=== PATIENT | male | born 1970 | race Caucasian/White ===

== ENCOUNTER 2022-03-02 11:21 | Outpatient (CLI) | payer OTHER, SELFPAY ==
--- NOTE | 2022-03-02 11:30 | MR_ITS ---
WS: [id number] MRI LUMBAR SPINE NONCONTRAST HISTORY: SPINAL STENOSIS OF LUMBAR REGION W/O NEUROGENIC CLAUDICATION COMPARISON: None available. TECHNIQUE: Sagittal and axial multisequence imaging is submitted. L4 retrolisthesis by 2 mm. The remaining vertebral bodies are normally aligned. Mild narrowing and desiccation of the disc spaces. Most significant L4-5 and L5-S1. No fracture or ma rrow edema. Conus terminates normally at L1-2 disc level. L1-L2: Normal. L2-L3: Normal. L3-L4: Mild annular disc bulging and very mild osteophytic ridging. Small central disc protrusion. Ad ditional LEFT foraminal disc protrusion which does contact but not displace the exiting LEFT L3 nerve root. Mild bilateral facet joint arthritis. Very mild central and subarticular recess narrowing. L4-L5: Diffuse annular disc bulging and osteophytic ridging with ligamentum flavum hypertrophy. Shall ow central disc protrusion contacts and deforms the ventral thecal sac. Disc protrusions extend into the subarticular recesses with mild contact on the traversing L5 nerve roots. Mild central and bilate ral foraminal and subarticular recess stenosis. L5-S1: Mild annular disc bulging and osteophytic ridging. Bilateral foraminal disc protrusions and mi ld foraminal narrowing. Mild central and subarticular recess stenosis. MR/MR lumbar spine wo con* [id number] IMPRESSION: 1. Mild central, bilateral subarticular recess and foraminal stenosis at L5-S1 due to combination of disc bulging, disc protrusions and osteophytes. 2. Central disc protrusion at L4-5 with additional subarticular recess protrus ions or disc bulging. Mild central, bilateral foraminal subarticular recess [place] nosis at L4-5. 3. Small central and LEFT foraminal disc protrusions at L3-4. Mild contact on the LEFT exiting L3 nerve root with no displacement. Mild central and subarticu lar recess stenosis at L3-4.
== END 2022-03-02 11:22 | disposition home or self-care (01) ==
LOC: RAD 11:23
PROVIDERS: Visit Provider Family Medicine
DX: M48.061 Spinal stenosis, lumbar region without neurogenic claudication (principal); M48.07 Spinal stenosis, lumbosacral region; M51.26 Other intervertebral disc displacement, lumbar region
CPT/HCPCS: 72148